=== PATIENT | female | born 2000 | race Caucasian/White ===

== ENCOUNTER 2022-07-15 06:46 | Outpatient (CLI) | payer OTHER ==
[~2022-07-15] VITALS: Ht 165.1 cm; Wt 74.1 kg
[2022-07-15 07:15] VITALS: BP 119/77; PULSE 82; TEMP 98.4
--- NOTE | 2022-07-15 07:15 | NUR ---
0650- Pt arrives on unit via wheelchair with her boyfriend's mother, complaints of severe back pain. Pt assited into bed. 0652- EFM and TOCO on and tracing. O2 sat monitor on and tracing maternal HR. VSS. Pt states she vomited in the ED while checking in and thinks she may have had a seizure. Pt has hx of seizures when she was a child but is not longer on meds. Pt is alert and oriented x4, no signs of recent seizure noted by this RN. Pt complains of constant, severe pain in her right flank area which worsens when she has a contractions. Pt denies VB, LOF. +FM per Pt. 0710- FHR noted to be tracing maternal HR, This RN to bedside. Pt sitting straight up in bed, moaning and yelling out in pain. FHR found to be tracing 145bpm.
--- NOTE | 2022-07-15 07:30 | NUR ---
Pads placed on side rails for seizure precautions.
[2022-07-15 07:45] VITALS: BP 126/80; PULSE 83
--- NOTE | 2022-07-15 07:45 | NUR ---
0722- IV start and labs obtained. Pt continues to complain of severe right back pain. Sitting up in bed, hunched over. EFM and TOCO not tracing well. 0726- Pt repositioned, FHR and TOCO adjusted and tracing. 0734- Straight cath UA obtained. Pt tolerated well.
[2022-07-15 07:46] LABS: COLLECTION METHOD CLEAN CATCH
[2022-07-15 07:50] LABS: HEMOGLOBIN 11.8 g/dl (12.5-16.0); MEAN CELL VOLUME 89 fl (80.0-100.0); MEAN CORPUSCULAR HEMOGLOBIN 30 pg (27-31); MEAN CORPUSCULAR HGB CONC 34 g/dl (33.0-37.0); MEAN PLATELET VOLUME 9.5 fl (7.4-10.4); PLATELET COUNT 214 K/mm3 (130-400); RED BLOOD COUNT 3.91 M/mm3 (4.10-5.30); REDCELL DISTRIBUTION WIDTH-CV 13.2 % (11.5-14.5)
[2022-07-15 07:51] LABS: HEMATOCRIT 34.6 % (37.0-47.0)
[2022-07-15 07:52] LABS: URINE APPEARANCE Clear (CLEAR/HAZY); URINE COLOR Yellow (YELLOW)
[2022-07-15 07:53] LABS: URINE BLOOD Negative (NEGATIVE); URINE GLUCOSE Negative (NEGATIVE); URINE KETONE Negative (NEGATIVE); URINE NITRATE Negative (NEGATIVE); URINE PROTEIN(semi-quant) Negative (NEGATIVE); URINE UROBILINOGEN 0.2 E.U/dL (0.2-1.0)
[2022-07-15 07:55] LABS: MUCOUS Present (NOT PRESENT); SQUAMOUS EPITHELIAL 0-2 /hpf (0-10); URINE BACTERIA Rare /hpf (NONE SEEN); URINE RBC 0-2 /hpf (0-2)
[2022-07-15] MEDS ORDERED: PRENATAL TABLET PO (08:06)
[2022-07-15] MEDS ORDERED: GLUCOPHAGE500 MG/TAB PO (08:06)
[2022-07-15 08:10] LABS: ALBUMIN 2.6 gm/dL (3.5-5.0); BILIRUBIN,TOTAL 0.5 mg/dL (0.2-1.2); CALCIUM 8.8 mg/dL (8.4-10.2); CREATININE, serum 0.64 mg/dL (0.57-1.11); POTASSIUM 3.6 mmol/L (3.5-4.5); TOTAL PROTEIN 5.9 gm/dL (6.2-8.1)
[2022-07-15 08:15] VITALS: BP 120/72; PULSE 86
[2022-07-15 08:15] LABS: BAND 9 % (0-10); LYMPHOCYTE 19 % (20.0-51.0); NEUTROPHILS 69 % (42.0-75.2); PLATELET ESTIMATE NORMAL (NORMAL)
--- NOTE | 2022-07-15 08:15 | NUR ---
0745- Pt provided Kpad for comfort. Pt assisted to RL with Kpad to right flank area. 0815- Pt resting with eyes closed. Appears to be more comfortable. Tense and uncomfortable with UCs.
[2022-07-15 08:45] VITALS: BP 122/78; PULSE 82
--- NOTE | 2022-07-15 08:45 | NUR ---
0825- Pt and boyfriend's mom updated that lab results were all WNL. Dr Sibley has reviewed these. He wants a SVE recheck. SVE by this RN unchanged. 0830- Dr Sibley at nurses station, updated on SVE. MD gives VORB to discharge home with labor precautions. MD to bedside to speak to Pt, wants to finish IVF prior to DC.
[2022-07-15 09:04] VITALS: BP 111/66; PULSE 80
--- NOTE | 2022-07-15 09:10 | NUR ---
0904- IV discontinued without difficulty. EFM and TOCO off. Discharge paperwork given and explained, denies questions. 0910- Pt ambulated off unit in stable condition.
== END 2022-07-15 09:10 | disposition home or self-care (01) ==
LOC: LDRO 06:46
PROVIDERS: Obstetrics & Gynecology
DX: O26.893 Other specified pregnancy related conditions, third trimester (principal); Z3A.39 39 weeks gestation of pregnancy
CPT/HCPCS: J7120

== ENCOUNTER 2022-07-17 06:26 | Inpatient (IN) | payer OTHER, MEDICAID ==
[2022-07-17] VITALS (57 sets, daily range): BP systolic 105–143; BP diastolic 54–80; PULSE 57–105; TEMP 97.8–98.6
[~2022-07-17] VITALS: Ht 165.1 cm; Wt 74.1 kg
[~2022-07-17 06:26] MED LIST: GLUCOPHAGE500 MG/TAB PO; PRENATAL TABLET PO
--- NOTE | 2022-07-17 06:30 | NUR ---
0630- PATIENT ARRIVED ON THE UNIT, AMBULATORY, ALERT, WITH FAMILY. 0645- IV STARTED. PATIENT TOLERATED PROCEDURE WELL. 0700- PITOCIN 2mU STARTED ORDERED AND PER POLICY. ASSESSMENT DONE, QUESTIONS ASKED AND ANSWERED. CONSENT FORMS SIGNED AND ON CHART.
--- NOTE | 2022-07-17 07:00 | NUR ---
0705- PATIENT SAT UP TO SIGN CONSENTS AT THIS TIME. DIFFICULTY TRACING TOCO AND EFM.
[2022-07-17 07:50] LABS: HEMOGLOBIN 11.4 g/dl (12.5-16.0); MEAN CELL VOLUME 88 fl (80.0-100.0); MEAN CORPUSCULAR HEMOGLOBIN 30 pg (27-31); MEAN CORPUSCULAR HGB CONC 34 g/dl (33.0-37.0); MEAN PLATELET VOLUME 9.7 fl (7.4-10.4); PLATELET COUNT 239 K/mm3 (130-400); RED BLOOD COUNT 3.86 M/mm3 (4.10-5.30); REDCELL DISTRIBUTION WIDTH-CV 13.2 % (11.5-14.5)
--- NOTE | 2022-07-17 08:15 | NUR ---
0820- PATIENT ASSISTED TO BATHROOM TO VOID. ASSISTED BACK TO BED, POSITIONED OT RIGHT SIDE WITH PILLOW.
[2022-07-17 08:16] LABS: BAND 7 % (0-10); EOSINOPHIL 1 % (0-4); LYMPHOCYTE 14 % (20.0-51.0); METAMYELOCYTE 2 % (0-0); NEUTROPHILS 69 % (42.0-75.2); PLATELET ESTIMATE NORMAL (NORMAL)
--- NOTE | 2022-07-17 08:30 | NUR ---
0830- DIFFICULTY TRACING TOCO PATTERN. MONITOR REPOSITIONED TO PROVIDE BETTER TRACING.
--- NOTE | 2022-07-17 15:45 | NUR ---
1548- ENTERS PATIENTS ROOM. PERFORMS A VAGINAL EXAM, NO CHANGE FROM LAST VAGINAL EXAM. INFORMS PATIENT AND RN THAT PITOCIN WILL BE STOPPED AND CYTOTEC WILL BE PLACED x2. 1550- PITOCIN INFUSION STOPPED, PREPARED TO INSERT CYTOTEC TABLET. 1626- CYTOTEC INSERTED INTRAVAGINALLY BY ELMO ELIZABETH. PATIENT TOLERATED INSERTION AND WAS EDUCATED TO STAY IN BED PER POLICY.
--- NOTE | 2022-07-17 20:35 | NUR ---
: PT OFF MONITOR TO SHOWER PRIOR TO CYTOTEC PLACEMENT.
--- NOTE | 2022-07-17 20:45 | NUR ---
[id number]: DIFFICULTY TRACING CTX PATTERN DUE TO CYTOTEC BEING PLACED AND CHANGE IN MATERNAL POSITIONING TO RIGHT WEDGE. TOCO ADJUSTED.
[2022-07-18] VITALS (81 sets, daily range): BP systolic 87–138; BP diastolic 52–88; PULSE 56–145; TEMP 98.3–98.9
--- NOTE | 2022-07-18 06:15 | NUR ---
0555- Julia HAJI CRNA IN ROOM FOR EPIDURAL PLACMENT. PT VERY ANXIOUS ABOUT HOW MUCH AMNIOTIC FLUID IS LEAKING SHE IS REPOSITING FOR EPIDURAL PLACEMENT. EDUCATED PT THAT THIS IS NORMAL AND FLUID WILL CONTINUE TO LEAK UNTIL DELIVERY. ASSISTED PT TO SITTING POSITION AT THE SIDE OF BED. PT IS VERY ANXIOUS AND TEARFUL CONCERNING EPIDURAL PLACEMENT, REASSURED BY THIS NURSE AND Julia HAJI CRNA. ENCOURAGED PT TO TAKE SLOW DEEP BREATHS, 0604- PT WAS ABLE TO RELAX FOR PLACEMENT. TEST DOSE GIVEN , PT TOLERATED WELL. 0615- REPOSTIONED TO HIGH FOWLERS. PT STATES THAT PAIN HAS LESSENED AND FEELS MORE LIKE PRESSURE OR TIGHTENING.
--- NOTE | 2022-07-18 12:00 | NUR ---
1200 - SVE PERFORMED BY THIS RN. -/-2. 1205 - MD CHALINO UPDATED ON PATIENT EXAM. NO NEW ORDERS AT THIS TIME. CARE ONGOING.
--- NOTE | 2022-07-18 12:50 | NUR ---
1250 - PATIENT POSITIONED RL WITH LLS. PATIENT REPORTS FEELING NAUEOUS. 1253 - PATIENT STATES "I JUST HAD A SEIZURE". RN PRESENT AT BEDSIDE AND OBSERVING PATIENT WHEN PATIENT STATES THIS. NO FOCAL OR GENERALIZED MOVEMENTS OR SEIZURE-LIKE ACTIVITY NOTED. NO POSTICTAL PERIOD NOTED. PATIENT AWAKE, ALERT AND ORIENTED. PATIENT'S SPEECH APPROPRIATE. NO NEURO DEFICITS NOTED UPON EXAM WITH THE EXCEPTION OF BLE WEAKNESS AND NUMBNESS WITH EPIDURAL IN PLACE. 1304 - MD CHALINO NOTIFIED OF PATIENT'S STATEMENT AND ABOVE EXAM. NO NEW ORDERS AT THIS TIME. CARE ONGOING.
--- NOTE | 2022-07-18 13:15 | NUR ---
1315 - TOCO TRACING INDESCERNIBLE. TOCO REPOSITIONED. CARE ONGOING.
--- NOTE | 2022-07-18 13:30 | NUR ---
1330 - TOCO TRACING INDESCERNIBLE. TOCO ADJUSTED. CARE ONGOING.
--- NOTE | 2022-07-18 16:40 | NUR ---
1640 - RECURRENT LATES NOTED. PATIENT POSITIONED LL. 1642 - LATES CONTINUE. PATIENT POSITIONED RL. PITOCIN OFF. CARE ONGOING.
--- NOTE | 2022-07-18 19:30 | NUR ---
TELEMONITOR PLACED ON PT.
--- NOTE | 2022-07-18 23:30 | NUR ---
PT AWAKE, TALKING TO BOYFRIEND AND THE BABY. BABY IS LATCHED ON AND NURSING WELL. PTS LEGS ARE STILL NUMB AND TINGLING FROM EPIDURAL.
[2022-07-19 04:12] VITALS: BP 114/64; PULSE 60; TEMP 98.2
[2022-07-19 08:36] VITALS: BP 100/63; PULSE 61; TEMP 97.4
[2022-07-19 12:23] VITALS: BP 96/53; PULSE 55; TEMP 97.5
[2022-07-19 17:00] VITALS: BP 90/49; PULSE 65; TEMP 97.6
[2022-07-19 19:50] VITALS: BP 97/56; PULSE 72; TEMP 98.1
--- NOTE | 2022-07-19 20:00 | NUR ---
Going to get into shower. fussing, puts to breast.
--- NOTE | 2022-07-19 20:20 | NUR ---
head of loss prevention off at this time. Assist up to shower. Educated on removal of dressing while in the shower, to call if she would like assistance.
--- NOTE | 2022-07-19 21:20 | NUR ---
To room at this time to check on pt. Resting in bed, . Instructed pt to call following feeding to have telemetry placed. Verbalized understanding.
[2022-07-20] MEDS ORDERED: MOTRIN 800800 MG/TAB PO (07:21)
[2022-07-20] MEDS ORDERED: PERCOCET 325 MG1 TA2 PO (07:22)
[2022-07-20 08:00] VITALS: BP 86/46; PULSE 63; TEMP 98.3
--- NOTE | 2022-07-20 08:30 | NUR ---
Rests in bed, alert. baby.
[2022-07-20 17:15] VITALS: BP 100/57; PULSE 78; TEMP 98
--- NOTE | 2022-07-20 18:15 | NUR ---
Patient calls out to speak to nurse. States feeling hot, request to have temperature taken. 99.2, pulse 80. Wash cloths given to forhead and back of neck. Did talk to patient about hormones. Let her know that she needs to call if this happens again.
[2022-07-20 21:00] VITALS: BP 121/67; PULSE 72; TEMP 98.4
[2022-07-21 02:00] VITALS: BP 108/56; PULSE 70; TEMP 98.2
[2022-07-21 08:36] VITALS: BP 101/61; PULSE 62; TEMP 98.4
--- NOTE | 2022-07-21 09:21 | NUR ---
Initial visit; Patient thanked Provider Contracting Consultant for offering congratulations and God's blessings for the of their son. Provider Contracting Consultant thanked family for choosing [facility].
--- NOTE | 2022-07-21 11:50 | NUR ---
1145 - DISCHARGE INSTRUCTIONS REVIEWED WITH PATIENT AND SIGNIFICANT OTHER. PATIENT VERBALIZES UNDERSTANDING. 1150 - PATIENT AMBULATORY OFF UNIT ACCOMPANIED BY THIS RN.
== END 2022-07-21 11:50 | disposition home or self-care (01) | DRG 786 ==
LOC: LDR 06:26 → OB 06:26
PROVIDERS: ADMIT Obstetrics & Gynecology
PROC: 10D00Z1 Extraction of Products of Conception, Low, Open Approach (ICD-10-PCS; principal; 2022-07-18)
PROC: 10H07YZ Insertion of Other Device into Products of Conception, Via Natural or Artificial Opening (ICD-10-PCS; 2022-07-18)
DX: O48.0 Post-term pregnancy (principal); O99.42 Diseases of the circulatory system complicating childbirth; Z3A.40 40 weeks gestation of pregnancy; Z37.0 Single live birth; O24.420 Gestational diabetes mellitus in childbirth, diet controlled; O76 Abnormality in fetal heart rate and rhythm complicating labor and delivery; I44.1 Atrioventricular block, second degree
CPT/HCPCS: J0595; J0690; J1100; J1885; J2400; J2405; J2590; J2795; J7120